=== PATIENT | male | born 1995 | race Two or more races ===

== ENCOUNTER 2019-08-25 18:10 | Outpatient (CLI) | payer OTHER ==
--- NOTE | 2019-08-25 21:04 | MRI Report ---
Reason: LOWER BACK PAIN, RADICULOPATHY Procedure Date: 08/25/2019 Accession Number: [id number] / [id number] Procedure: MRI - Lumbar Spine W/O CPT Code: Final Report FULL RESULT: EXAM: MRI LUMBAR SPINE WITHOUT CONTRAST EXAM DATE: 08/25/2019 06:43 PM. CLINICAL HISTORY: LOWER BACK PAIN, RADICULOPATHY. COMPARISON: None. TECHNIQUE: Multiplanar, multisequence T1-weighted and fluid-sensitive sequences of the lumbar spine from T12 to S1 without contrast. Other: None. FINDINGS: Spinal Canal: The conus terminates at L1. The conus medullaris and cauda equina are unremarkable. Alignment: No scoliosis or spondylolisthesis. Bone Marrow: Five [id number] lumbar vertebral bodies are assumed. No gross fractures or bone lesions. No bone marrow replacement. Disk Levels/Facets: T12-L1: Unremarkable. L1-L2: Unremarkable. L2-L3: Unremarkable. L3-L4: Unremarkable. L4-L5: Moderate loss of disk space height is seen. Patchy T2 hypointense disk signal is present. Minimal circumferential disk bulges noted. Dorsal and left dorsolateral inferior disk herniation is seen. Mass-effect with posterolateral displacement and effacement of the descending left L5 nerve root is seen with marked lateral recess stenosis. Effacement of the thecal sac is seen greater to the left without canal stenosis. Effacement of proximal descending right L5 nerve root is seen with mild right lateral recess stenosis. L5-S1: Mild loss of disk space height is seen. T2 hypointense disk signal is noted. Broad-based dorsal subligamentous disk protrusion is seen. Left dorsolateral annular fissure is seen. Effacement of the descending S1 nerve roots is noted greater on the left. Mild to moderate left lateral recess stenosis. Musculature: Normal. No edema or fatty atrophy. Other: The partially visualized retroperitoneum is unremarkable. IMPRESSION: 1. L4-L5: Degenerative disk change. Dorsal and left dorsolateral inferior disk herniation. Left marked lateral recess stenosis. Right mild lateral recess stenosis. 2. L5-S1: Mild degenerative disk change. Dorsal disk protrusion with left dorsolateral annular fissure. Left mild to moderate lateral recess stenosis. Comment: The following findings are so common in adults without low back pain that while we report their presence, they must be interpreted with caution and in the context of the clinical situation. (Reference Allegra et al, Spine 2001) Prevalence of findings in patients without low back pain: Disk degeneration (any evidence): 92% Disk desiccation/T2 signal loss: 83% Disk height loss: 56% Disk bulge: 64% Disk protrusion: 32% Annular tear/high intensity zone: 38% RADIA
== END 2019-08-25 18:11 | disposition home or self-care (01) ==
LOC: DI 18:10
PROVIDERS: ATTEND Internal Medicine
DX: M51.26 Other intervertebral disc displacement, lumbar region (principal); M51.36 Other intervertebral disc degeneration, lumbar region; M51.27 Other intervertebral disc displacement, lumbosacral region; M48.07 Spinal stenosis, lumbosacral region; M48.061 Spinal stenosis, lumbar region without neurogenic claudication
CPT/HCPCS: 72148

== ENCOUNTER 2020-06-08 07:44 | Outpatient (CLI) | payer OTHER | END 2020-06-08 07:45 | disposition critical access hospital (66) | LOC: EMS 07:44 | PROVIDERS: ATTEND Surgery | DX: M25.512 Pain in left shoulder (principal); M54.5 Low back pain; V48.5XXA Car driver injured in noncollision transport accident in traffic accident, initial encounter; Y92.413 State road as the place of occurrence of the external cause | CPT/HCPCS: A0425; A0429 ==

== ENCOUNTER 2020-11-08 10:19 | Emergency (ER) | payer OTHER ==
[2020-11-08 10:25] VITALS: BP 153/87
[2020-11-08] MEDS ORDERED: MELOXICAM 7.5 MG TABLET PO STA (10:38)
[2020-11-08] MEDS ORDERED: DEXAMETHASONE 10 MG/ML VIAL PO STA (10:38)
[2020-11-08] MEDS ORDERED: CHERRY SYRUP 10 ML UDC PO ONE (10:38)
--- NOTE | 2020-11-08 10:41 | ED Physician Documentation ---
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 No: Twisting, Trauma, Anticoagulated, Cancer, IVDA Similar symptoms before: Diagnosis (prior sciatica with a diskectomy in 2019.) Review of Systems Constitutional: denies: Fever, Chills GI: denies: Vomiting, Diarrhea : denies: Unable to Void, Incontinent Skin: denies: Rash Musculoskeletal: denies: Neck pain Neurologic: denies: Focal weakness, Numbness PD PAST MEDICAL HISTORY - Past Medical History Cardiovascular: None Respiratory: None Neuro: None Endocrine/Autoimmune: None GI: None : None HEENT: None Psych: None Musculoskeletal: Chronic back pain, Other Derm: None - Past Surgical History Past Surgical History: Yes Ortho: Other (microdiscectomy on lumbar spine couple months ago. Healing okay but still with back pain often. ) - Present Medications Home Medications: Ambulatory Orders Medication Instructions Recorded Confirmed Cyclobenzaprine [Flexeril] 10 mg PO TID PRN 06/08/20 11/08/20 Meloxicam [Mobic] 7.5 mg PO BID PRN #30 tablet 11/08/20 Methylprednisolone [Medrol] 4 mg PO DAILY #1 tab.ds.pk 11/08/20 methocarbamoL [Robaxin] 500 mg PO Q6H PRN #20 tablet 11/08/20 - Allergies Allergies/Adverse Reactions: Allergies Allergy/AdvReac Type Severity Reaction Status Date / Time acetaminophen [From Vicodin] AdvReac Nausea Verified 11/08/20 10:25 hydrocodone [From Vicodin] AdvReac Nausea Verified 11/08/20 10:25 - Social History Does the pt smoke?: Yes Smoking Status: Current every day smoker Does the pt drink ETOH?: No Does the pt have substance abuse?: No - Immunizations Immunizations are current?: Yes - POLST Patient has POLST: No PD ED PE NORMAL - Vitals Vital signs reviewed: Yes - General General: Alert and oriented X 3, No acute distress - HEENT HEENT: Moist mucous membranes - Neck Neck: Supple, no meningeal sign - Cardiac Cardiac: RRR, Strong equal pulses - Respiratory Respiratory: No respiratory distress, Clear bilaterally - Abdomen Abdomen: Soft, Non tender, Non distended - Back Back: No spinal TTP (No midline tenderness to palpation or percussion. No step- off or deformity.) - Derm Derm: Warm and dry - Extremities Extremities: Other (Normal bilateral lower extremity patellar and ankle jerk reflexes. Normal great toe extension bilaterally. no saddle anesthesia) - Neuro Neuro: Alert and oriented X 3, No motor deficit, No sensory deficit - Psych Psych: Normal mood, Normal affect Results - Vitals Vitals: Vital Signs - 24 hr 11/08/20 10:21 Temperature 36.5 C Heart Rate 104 H Respiratory 20 Rate Blood Pressure 153/87 H O2 Saturation 100 Oxygen O2 Source Room air PD MEDICAL DECISION MAKING - ED course Complexity details: considered differential (Normal bilateral lower extremity patellar and ankle jerk reflexes. Normal great toe extension bilaterally. no saddle anesthesia), d/w patient ED course: 25-year-old male with what appears to be sciatica. We will place him on steroids for home. We will also place him on anti-inflammatories and muscle relaxants. Ambulating well. No acute neurological deficits. No evidence of cauda equina or epidural abscess. Patient counseled regarding signs and symptoms for which I believe and urgent re-evaluation would be necessary. Patient with good understanding of and agreement to plan and is comfortable going home at this time This document was made in part using voice recognition software. While efforts are made to proofread this document, sound alike and grammatical errors may occur. Departure - Departure Disposition: 01 Home, Self Care Clinical Impression: Sciatica Qualifiers: Laterality: left Qualified Code(s): M54.32 - Sciatica, left side Condition: Good Instructions: ED Sciatica Follow-Up: Marily Hooks MD [Primary Care Provider] - Within 1 week Prescriptions: Methylprednisolone [Medrol] 4 mg PO DAILY #1 tab.ds.pk Meloxicam [Mobic] 7.5 mg PO BID PRN #30 tablet PRN Reason: Pain methocarbamoL [Robaxin] 500 mg PO Q6H PRN #20 tablet PRN Reason: muscle spasm Comments: Use the medications as prescribed. Return if you worsen. Follow-up with your doctor for further care. They would likely want to repeat an MRI on you to see if anything has changed. Do not drive or operate heavy machinery while taking the Robaxin. Forms: Activity restrictions Discharge Date/Time: 11/08/20 10:56
== END 2020-11-08 10:56 | disposition home or self-care (01) ==
LOC: ED 10:19
DX: M54.32 Sciatica, left side (principal); F17.200 Nicotine dependence, unspecified, uncomplicated
CPT/HCPCS: 99283; 99284; A9270

== ENCOUNTER 2023-08-05 11:53 | Emergency (ER) | payer OTHER | END 2023-08-05 12:43 | disposition home or self-care (01) | LOC: ED 11:53 | DX: Z53.21 Procedure and treatment not carried out due to patient leaving prior to being seen by health care provider (principal) ==

== ENCOUNTER 2023-08-06 14:41 | Emergency (ER) | payer OTHER ==
--- NOTE | 2023-08-06 16:59 | ED Physician Documentation ---
PD HPI BACK PAIN - Stated complaint Stated Complaint: BACK PX - Chief complaint Chief Complaint: Back Pain - History obtained from History obtained from: Patient - History of Present Illness Timing - onset: How many days ago (1-2) Timing - duration: Days (1-2) Timing - details: Gradual onset, Still present Location: Lower, Left Quality: Pain, Spasm, Sharp, Similar to prior episodes (occasional episodes of back pain in the past. Had discectomy several years ago L4 level.) Worsened by: Movement Contributing factors: Twisting. No: Trauma Similar symptoms before: Diagnosis (prior disc problems with sciatica and had discectomy. Since, has had episodes of low back pain, not chronic.) Review of Systems Constitutional: denies: Fever, Chills GI: denies: Abdominal Pain : denies: Incontinent Skin: denies: Rash, Lesions Neurologic: denies: Focal weakness, Numbness PD PAST MEDICAL HISTORY - Past Medical History Cardiovascular: None Respiratory: None Neuro: None Endocrine/Autoimmune: None GI: None : None HEENT: None Psych: None Musculoskeletal: Chronic back pain, Other Derm: None - Past Surgical History Past Surgical History: Yes Ortho: Other (microdiscectomy on lumbar spine couple months ago. Healing okay but still with back pain often. ) - Present Medications Home Medications: Ambulatory Orders Medication Instructions Recorded Confirmed Cyclobenzaprine [Flexeril] 10 mg PO TID PRN 06/08/20 11/08/20 Meloxicam [Mobic] 7.5 mg PO BID PRN #30 tablet 11/08/20 methocarbamoL [Robaxin] 500 mg PO Q6H PRN #20 tablet 11/08/20 methylPREDNISolone [Medrol] 4 mg PO DAILY #1 tab.ds.pk 11/08/20 Meloxicam [Mobic] 7.5 mg PO BID 10 Days #20 tablet 08/06/23 Oxycodone HCl/Acetaminophen 1 each PO Q6H PRN #20 tablet 08/06/23 [Percocet 5-325 mg Tablet] dexAMETHasone [Decadron] 4 mg PO DAILY #7 tablet 08/06/23 tiZANidine [Zanaflex] 4 mg PO Q8H PRN #25 tablet 08/06/23 - Allergies Allergies/Adverse Reactions: Allergies Allergy/AdvReac Type Severity Reaction Status Date / Time acetaminophen [From Vicodin] AdvReac Nausea Verified 08/06/23 15:15 hydrocodone [From Vicodin] AdvReac Nausea Verified 08/06/23 15:15 - Social History Does the pt smoke?: Yes Smoking Status: Current every day smoker Does the pt drink ETOH?: No Does the pt have substance abuse?: No - Immunizations Immunizations are current?: Yes - POLST Patient has POLST: No PD ED PE NORMAL - Vitals Vital signs reviewed: Yes - General General: Alert and oriented X 3, Well developed/nourished, Other (appears uncomfortable with guarded ROM of the low back. ) - Abdomen Abdomen: Soft, Non tender - Back Back: No spinal TTP (some tender in paralumbar muscles without trigger point per se. ) - Derm Derm: Normal color, Warm and dry, No rash - Neuro Neuro: Alert and oriented X 3, No motor deficit, No sensory deficit, Normal speech Results - Vitals Vitals: Oxygen O2 Source Room air PD Medical Decision Making - ED course Complexity details: considered differential (exac low back pain without notable injury. No red flags to suggest need for labs/imaging. ), d/w patient Drug Therapy Requiring Monitoring for Toxicity: given PO meds here without problems. Departure - Departure Disposition: 01 Home, Self Care Clinical Impression: Acute exacerbation of chronic low back pain Condition: Stable Record reviewed to determine appropriate education?: Yes Instructions: ED Spasm Back No Trauma Follow-Up: Marily Hooks MD [Primary Care Provider] - Prescriptions: dexAMETHasone [Decadron] 4 mg PO DAILY #7 tablet Meloxicam [Mobic] 7.5 mg PO BID 10 Days #20 tablet Oxycodone HCl/Acetaminophen [Percocet 5-325 mg Tablet] 1 each PO Q6H PRN #20 tablet PRN Reason: pain tiZANidine [Zanaflex] 4 mg PO Q8H PRN #25 tablet PRN Reason: Spasms Comments: We typically would treat exacerbation of back pain episodes with a combination of a steroid type anti-inflammatory along with then transitioning to regular anti-inflammatories, muscle relaxant and pain medicines. I wrote prescriptions for several medicines and sent it to the [facility] pharmacy. Do stretching and low back exercises as you are likely familiar with from your prior surgery and episodes. Recheck if not improving well over the next few days down to your baseline/normal activity. My narcotic instructions I am prescribing a short course of narcotic pain medication for you. These are potentially dangerous and addictive medications that should be used carefully. These medications may constipate you. Take an xrwg-zhf-rkwiloa stool softener s uch as docusate twice daily with plenty of water while taking these medications. If you go 24 hours without a bowel movement, take [id number] MiraLAX, per package instructions. Do not drink or drive while taking these medications. If you received narcotic or sedating medications while in the emergency department do not drive for 24 hours. Store this medication in a safe, secure place and out of reach of children. It is a violation of federal law to give or sell this medication to another person or to use in a manner other than prescribed. The ED will not refill narcotic prescriptions, including prescriptions lost or stolen. You can dispose of unwanted medications at the [facility]'s office or at several pharmacies such as [facility]. Discharge Date/Time: 08/06/23 17:33
[2023-08-06] MEDS ORDERED: dexAMETHasone 4 MG TABLET PO STA (17:10)
[2023-08-06] MEDS ORDERED: NAPROXEN 250 MG TABLET PO STA (17:10)
[2023-08-06] MEDS ORDERED: oxyCODONE 5 MG TABLET PO STA (17:10)
[2023-08-06] MEDS ORDERED: tiZANidine 4 MG TABLET PO STA (17:10)
[2023-08-06 17:36] VITALS: BP 153/78; O2SAT 97
== END 2023-08-06 17:33 | disposition home or self-care (01) ==
LOC: ED 14:41
DX: M54.50 Low back pain, unspecified (principal); G89.29 Other chronic pain; F17.200 Nicotine dependence, unspecified, uncomplicated; Z79.899 Other long term (current) drug therapy
CPT/HCPCS: 99282; 99284; A9270; J8540